=== PATIENT | male | born 1940 | race Caucasian/White ===

== ENCOUNTER → 2020-05-04 08:42 | Outpatient (CLI) | payer MEDICARE, BC ==
[2016-03-29 11:03] VITALS: BMI 22.0
[~2020-05-04 08:42] MED LIST: ASPIRIN 81 MG E81 MG PO; FISH OIL 1,2001 CA1 PO; HUMALOG MI100 UNITS/; LANTUS INSULIN10 ML; LEVEMIR100 U/M1 SC; LEVEMIR100 U/M1 SQ; PLAVIX75 MG PO; PRINIVIL20 MG PO; QUESTRAN LIG1 PACKET PO
--- NOTE | 2020-05-05 09:11 | EC ---
PATIENT:LIBORIO SCHULZ DATE OF SERVICE: 05/04/20 SEX: M MEDICAL RECORD: [id number] DATE OF : 44 [facility] [place] AGE OF PATIENT: 80 ADMISSION DATE: 05/04/20 REFERRING PHYSICIAN: INTERPRETING PHYSICIAN: IVÁN KRISHNAN MD ECHOCARDIOGRAM REPORT ECHO CHARGES 4 ECHO COMPLETE Date: 05/04/20 CLINICAL DIAGNOSIS: CAD/HEART MURMUR ECHOCARDIOGRAPHIC MEASUREMENTS (adult normal given) AC root (d.<3.7cm) 3.6 cm LV Septum d (<1.2 cm> 1.4 cm Valve Excursion 1.2 cm LV Septum (systole) 1.6 cm Left Atria (s.<4.0cm> 3.8 cm LVPW d(<1.2cm) 1.4 cm RV (d.<2.3cm) 3.9 cm LVPW (sytole) 1.6 cm LV diastole(<5.6CM) 5.2 cm MV E-F(>70mm/sec) cm LV systole 3.4 cm LVOT Diameter 2.2 cm MV exc.(>10mm) 1.1 cm Est.ejection fraction (50-75%) % DOPPLER: LVIT cm/sec A 102.0cm/sec E 62.0 cm/sec LA cm/sec RVSP 23 mmHg LVOT 79 cm/sec AOP1/2T m/s Asc. Ao 145 cm/sec RVOT cm/sec RA cm/sec PA cm/sec AV Gradient Peak 8.41 mmHg AV Mean 5.29 mmHg AV Area 2.0 cm MV Gradient Peak 8.02 mmHg MV Mean 3.46 mmHg MV Area cm COMMENTS: Tele Rn: 2 RIANA HENRY Supervisor Policy Change Clerks: 3 Dr. Valadez TAPE# PACS Pericardial Effusion N DATE OF SERVICE: LVH is present. LV internal dimension is normal. Wall motion is normal. EF is greater than or equal to 55%. Aortic valve is tricuspid. No evidence of stenosis by Doppler interrogation. Left atrium ____. Mitral valve shows no prolapse. Trace MR. Right-sided chambers are grossly normal. Trace TR. TRANSINT:[id number] Voice Confirmation ID: [id number] DOCUMENT ID: [id number] ECHOCARDIOGRAM REPORT [id number] SCHULZLIBORIO ARMENDARIZ VIÁN KRISHNAN MD at 0911 CC: [id number] DICTATION DATE: 05/04/20 1513 SOLAR MANAGER: 05/04/20 2313 DEP CLI 05/04/[address] [address]
== END | disposition home or self-care (01) ==
LOC: D.HCCECHO 08:42
PROVIDERS: ATTEND Internal Medicine Cardiovascular Disease
DX: I25.10 Atherosclerotic heart disease of native coronary artery without angina pectoris (principal)

== ENCOUNTER 2020-05-12 12:46 | Inpatient (IN) | payer MEDICARE, BC ==
[2020-05-12] VITALS (8 sets, daily range): BP systolic 137–177; BP diastolic 81–103
[~2020-05-12] VITALS: Ht 188 cm; Wt 64.5 kg
[2020-05-12] MEDS ORDERED: BASAGLAR K100 UNIT/1 SC (13:11)
[2020-05-12] MEDS ORDERED: HUMULIN R100 UNIT/1 SC (13:12)
[2020-05-12 13:19] LABS: BASOPHILS 0.2 % (0-2); EOSINOPHILS 1.9 % (0-7); HEMOGLOBIN 10.4 g/dL (13.5-17.5); IMMATURE GRANULOCYTES 0.2 % (0-5); LYMPHOCYTES 36.8 % (15-50); MCH 30.7 pg (26.0-34.0); MCHC 34.7 g/dL (31.0-37.0); MCV 88.5 fL (80.0-100.0); MEAN PLATELET VOLUME 9.4 fL (7.4-10.4); MONOCYTES 10.7 % (2-11); NEUTROPHILS 50.2 % (40-80); RBC 3.39 10x6/uL (4.20-6.10); WBC 4.9 10x3/uL (4.8-10.8)
[2020-05-12 13:28] LABS: CALCIUM 8.5 mg/dL (8.5-10.1); CARBON DIOXIDE 28.2 mmol/L (21.0-32.0); CHLORIDE - SERUM 91 mmol/L (98-107); CREATININE - SERUM 1.1 mg/dL (0.6-1.3); GLUCOSE 312 mg/dL (74-106); POTASSIUM - SERUM 4.6 mmol/L (3.5-5.1); UREA NITROGEN 11 mg/dL (7-18); eGFR NON AFRICAN AMERICAN 69 mL/min (90-120)
[2020-05-12 13:37] LABS: ALBUMIN 3.4 g/dL (3.4-5.0); ALKALINE PHOSPHATASE 66 U/L (30-120); ALT (SGPT) 14 U/L (10-68); AMYLASE - SERUM 17 U/L (25-115); BILIRUBIN - TOTAL 0.57 mg/dL (0.2-1.3); CALC OSMOLALITY 256 mosm/kg (275-300); LIPASE 57 U/L (73-393); PROTEIN - SERUM 6.9 g/dL (6.4-8.2); SODIUM 122 mmol/L (136-145); TROPONIN-I < 0.017 ng/mL (0.000-0.060)
[2020-05-12 13:49] LABS: PLATELET COUNT 199 10x3/uL (130-400)
[2020-05-12 14:29] LABS: BILIRUBIN NEGATIVE (NEGATIVE); KETONE NEGATIVE (NEGATIVE); NITRITE NEGATIVE (NEGATIVE); UROBILINOGEN NORMAL mg/dL (< 2)
--- NOTE | 2020-05-12 19:26 | NUR ---
ASSUMED CARE OF PATIENT, STATES HE CAME IN FOR GENERALIZED WEAKNESS X 3 DAYS, WORSE TODAY. HAS A HEART CATH SCHEDULED TOMORROW, BUT FELT LIKE HE NEEDED TO COME IN, N+ IS LOW, WHICH HE SAYS HAS HAPPENED BEFORE. IS A+O X3 , VERY PLEASANT.
[2020-05-13] VITALS (11 sets, daily range): BP systolic 114–163; BP diastolic 55–98; Ht 188 cm; Wt 64.5 kg
--- NOTE | 2020-05-13 01:58 | NUR ---
RESTING SUPINE POSITION, NO SIGNS DISTRESS NOTED AT THIS TIME. WILL CONTINUE TO MONITOR.
--- NOTE | 2020-05-13 02:06 | NUR ---
PT CALLED NURSE INTO ROOM, REPORTS "I DON'T FEEL WELL. I FEEL FUNNY." NOTED TO BE DIAPHORETIC AND WARM TO TOUCH. FSBS 48 AT THIS TIME. INITIATED HYPOGLYCEMIA PROTOCOL PER EMAR.
--- NOTE | 2020-05-13 02:15 | NUR ---
NOTED 300ML URINE OUTPUT.
--- NOTE | 2020-05-13 02:54 | NUR ---
FSBS NOW 98. PT REPORTS "I FEEL A LOT BETTER." ROLLED TO RIGHT SIDE. NO SIGNS DISTRESS NOTED. WILL CONTINUE TO MONITOR.
[2020-05-13 05:33] LABS: BASOPHILS 0.2 % (0-2); HEMATOCRIT 31.1 % (42.0-54.0); HEMOGLOBIN 10.9 g/dL (13.5-17.5); IMMATURE GRANULOCYTES 0.2 % (0-5); LYMPHOCYTES 30.8 % (15-50); MCH 30.9 pg (26.0-34.0); MCV 88.1 fL (80.0-100.0); MEAN PLATELET VOLUME 9.4 fL (7.4-10.4); MONOCYTES 12.2 % (2-11); NEUTROPHILS 54.6 % (40-80); PLATELET COUNT 218 10x3/uL (130-400); RBC 3.53 10x6/uL (4.20-6.10); RDW 12.3 % (11.5-14.5); WBC 6.1 10x3/uL (4.8-10.8)
--- NOTE | 2020-05-13 06:05 | NUR ---
BULB FILLER CONSENT AND BLOOD CONSENT OBTAINED AT THIS TIME.
[2020-05-13 06:12] LABS: ALBUMIN 3.3 g/dL (3.4-5.0); ALKALINE PHOSPHATASE 64 U/L (30-120); ALT (SGPT) 14 U/L (10-68); BILIRUBIN - TOTAL 0.46 mg/dL (0.2-1.3); CALC OSMOLALITY 257 mosm/kg (275-300); CALCIUM 8.4 mg/dL (8.5-10.1); CARBON DIOXIDE 27.9 mmol/L (21.0-32.0); CHLORIDE - SERUM 96 mmol/L (98-107); CREATININE - SERUM 0.9 mg/dL (0.6-1.3); MAGNESIUM - SERUM 1.7 mg/dL (1.8-2.4); PHOSPHOROUS 3.9 mg/dL (2.5-4.9); POTASSIUM - SERUM 4.1 mmol/L (3.5-5.1); PRO BNP 455 pg/mL (0-450); PROTEIN - SERUM 6.5 g/dL (6.4-8.2); SODIUM 130 mmol/L (136-145); UREA NITROGEN 9 mg/dL (7-18); eGFR NON AFRICAN AMERICAN 87 mL/min (90-120)
[2020-05-13 06:21] LABS: GLUCOSE 69 mg/dL (74-106)
[2020-05-13 07:28] LABS: INR 0.97 (0.85-1.17); PROTIME 12.9 SECONDS (11.6-15.0)
--- NOTE | 2020-05-13 17:09 | NUR ---
PT TO ROOM FROM CORPORATE DIRECTOR RECOVERY. RIGHT GROIN INCISION NOTED. FEM-STOP IN PLACE BUT RELEASED OF PRESSURE ALREADY. PT INSTRUCTED TO CONTINUE TO LIE FLAT. AT BEDSIDE.
--- NOTE | 2020-05-13 19:30 | NUR ---
RECEIVED BEDSIDE REPORT. PATIENT IS ALERT AND ORIENTED, RESTING COMFORTABLY IN BED. RESPIRATIONS ARE EVEN AND UNLABORED. NO S/S OF DISTRESS. NO C/O PAIN. CALL LIGHT WITHIN REACH. WILL CPOC.
[2020-05-14 04:00] VITALS: BP 120/44
[2020-05-14 05:52] LABS: BASOPHILS 0.2 % (0-2); HEMATOCRIT 29.7 % (42.0-54.0); IMMATURE GRANULOCYTES 0.2 % (0-5); LYMPHOCYTES 26.3 % (15-50); MCHC 33.7 g/dL (31.0-37.0); MCV 89.2 fL (80.0-100.0); MEAN PLATELET VOLUME 9.4 fL (7.4-10.4); MONOCYTES 13.5 % (2-11); NEUTROPHILS 56.8 % (40-80); PLATELET COUNT 228 10x3/uL (130-400); RBC 3.33 10x6/uL (4.20-6.10); RDW 12.4 % (11.5-14.5); WBC 5.4 10x3/uL (4.8-10.8)
[2020-05-14 05:57] LABS: CALC OSMOLALITY 254 mosm/kg (275-300); CALCIUM 8.3 mg/dL (8.5-10.1); CARBON DIOXIDE 28.7 mmol/L (21.0-32.0); CHLORIDE - SERUM 96 mmol/L (98-107); CREATININE - SERUM 0.9 mg/dL (0.6-1.3); MAGNESIUM - SERUM 1.7 mg/dL (1.8-2.4); PHOSPHOROUS 3.7 mg/dL (2.5-4.9); POTASSIUM - SERUM 4.2 mmol/L (3.5-5.1); SODIUM 129 mmol/L (136-145); UREA NITROGEN 11 mg/dL (7-18); eGFR NON AFRICAN AMERICAN 87 mL/min (90-120)
[2020-05-14 05:58] LABS: GLUCOSE 52 mg/dL (74-106)
[2020-05-14 09:58] VITALS: BP 119/66
[2020-05-14] MEDS ORDERED: PLAVIX75 MG PO (10:43)
[2020-05-14] MEDS ORDERED: LOW DOSE ASPIRI81 M1 PO (11:27)
--- NOTE | 2020-05-14 13:23 | NUR ---
IV AND TELEMETRY DCD. DC PLANS GIVEN. UNDERSTANDING VOICED. ESCORTED TO CAR BY W/C.
== END 2020-05-14 13:33 | disposition home or self-care (01) | DRG 982 ==
LOC: D.ER 12:46 → D.EDHOLD 23:59 → D.M2 05-13 16:59
PROVIDERS: Family Medicine; ADMIT Family Medicine; ATTEND Family Medicine
PROC: 027035Z Dilation of Coronary Artery, One Artery with Two Drug-eluting Intraluminal Devices, Percutaneous Approach (ICD-10-PCS; principal; 2020-05-13)
PROC: 4A023N7 Measurement of Cardiac Sampling and Pressure, Left Heart, Percutaneous Approach (ICD-10-PCS; 2020-05-13)
PROC: B2111ZZ Fluoroscopy of Multiple Coronary Arteries using Low Osmolar Contrast (ICD-10-PCS; 2020-05-13)
PROC: B2151ZZ Fluoroscopy of Left Heart using Low Osmolar Contrast (ICD-10-PCS; 2020-05-13)
DX: E87.1 Hypo-osmolality and hyponatremia (principal); C91.11 Chronic lymphocytic leukemia of B-cell type in remission; D64.9 Anemia, unspecified; E11.65 Type 2 diabetes mellitus with hyperglycemia; I10 Essential (primary) hypertension; I25.10 Atherosclerotic heart disease of native coronary artery without angina pectoris; E11.40 Type 2 diabetes mellitus with diabetic neuropathy, unspecified; G89.29 Other chronic pain; M54.9 Dorsalgia, unspecified; K21.9 Gastro-esophageal reflux disease without esophagitis; K58.9 Irritable bowel syndrome, unspecified

== ENCOUNTER → 2020-11-05 14:54 | Outpatient (CLI) | payer MEDICARE, BC ==
[2020-05-13 18:20] VITALS: BMI 18.2
[~2020-11-05 14:54] MED LIST changes: +BASAGLAR K100 UNIT/1 SC; +HUMULIN R100 UNIT/1 SC; +LOW DOSE ASPIRI81 M1 PO
== END | disposition home or self-care (01) ==
LOC: D.LABREF 14:54
PROVIDERS: ATTEND Surgery
DX: R59.1 Generalized enlarged lymph nodes (principal); C91.90 Lymphoid leukemia, unspecified not having achieved remission